=== PATIENT | female | born 1945 | race Caucasian/White ===

== ENCOUNTER 2021-07-24 06:45 | Day surgery (SDC) | payer MEDICARE, OTHER ==
[2021-07-24] MEDS ORDERED: Propofol 200 MG/20 ML SDV ONE (07:21)
[2021-07-24] MEDS ORDERED: fentaNYL 100 MCG/2 ML SDV ONE (07:21)
[2021-07-24] MEDS ORDERED: Ketorolac 30 MG/ML SDV ONE (07:22)
[2021-07-24] MEDS ORDERED: Midazolam 1 MG/ML 2 ML SDV ONE (07:22)
[2021-07-24] MEDS ORDERED: Glycopyrrolate 0.2 MG/ML SDV ONE (07:22)
[2021-07-24] MEDS ORDERED: Lidocaine 2% 5 ML SDV ONE (07:22)
[2021-07-24] MEDS ORDERED: Ondansetron 4 MG/2 ML SDV ONE (07:22)
--- NOTE | 2021-07-24 07:33 | PCM.PREANE ---
Preanesthetic Assessment - Procedure Proposed Procedure: Post Colporrhaphy, Perineaorraphy, correction of labial Agglutination - Anesthesia/Transfusion/Family Hx Anesthesia History: Prior Anesthesia Without Reaction Family History of Anesthesia Reaction: No Transfusion History: Prior Transfusion Reaction - Review of Systems General: No Symptoms Pulmonary: No Symptoms Cardiovascular: No Symptoms Gastrointestinal: No Symptoms Neurological: No Symptoms Other: Reports: None - Physical Assessment NPO Status Date: 07/23/21 NPO Status Time: 20:30 Height: 5 ft 3.75 in Weight: 63.503 kg ASA Class: 2 Mental Status: Alert & Oriented x3 Airway Class: Mallampati = 3 Dentition: Reports: Normal Dentition Thyro-Mental Finger Breadths: 3 Mouth Opening Finger Breadths: 3 ROM/Head Extension: Full Lungs: Clear to Auscultation, Normal Respiratory Effort Cardiovascular: Regular Rate, Regular Rhythm - Allergies Allergies/Adverse Reactions: Allergies Allergy/AdvReac Type Severity Reaction Status Date / Time No Known Allergies Allergy Verified 07/20/21 12:56 - Acknowledgements Anesthesia Type Planned: General Anesthesia Pt an Appropriate Candidate for the Planned Anesthesia: Yes Alternatives and Risks of Anesthesia Discussed w Pt/Guardian: Yes Pt/Guardian Understands and Agrees with Anesthesia Plan: Yes PreAnesthesia Questionnaire HEENT History: Reports: Allergic Rhinitis, Cataract Cardiovascular History: Reports: None Respiratory History: Reports: None Gastrointestinal History: Reports: Colon Polyp Genitourinary History: Reports: None LOST AND FOUND CLERK History: Reports: None Musculoskeletal History: Reports: Arthritis, Fracture Other Musculoskeletal History: hx of fx leg as a child Neurological History: Reports: None Psychiatric History: Reports: None Endocrine/Metabolic History: Reports: None Hematologic History: Reports: None Immunologic History: Reports: None Oncologic (Cancer) History: Reports: None Dermatologic History: Reports: Other (See Below) Other Dermatologic History: Lichen Sclerosis - Past Surgical History Head Surgeries/Procedures: Reports: None HEENT Surgical History: Reports: Naso-Sinus Surgery, Tonsillectomy Cardiovascular Surgical History: Reports: None Respiratory Surgical History: Reports: None GI Surgical History: Reports: Appendectomy, Colonoscopy, EGD, Hernia, Inguinal Female Surgical History: Reports: Tubal Ligation Endocrine Surgical History: Reports: None Neurological Surgical History: Reports: None Musculoskeletal Surgical History: Reports: None Oncologic Surgical History: Reports: None - SUBSTANCE USE Tobacco Use Within Last Twelve Months: No Recreational Drug Use History: No - HOME MEDS Home Medications: Home Meds Calcium Carbonate/Vitamin D3 [Calcium 500 + Vit D 400] 1 tab PO BID 07/20/21 [History] Cholecalciferol (Vitamin D3) [Vitamin D3] 5,000 unit PO DAILY 07/20/21 [History] Clobetasol [Clobetasol 0.05%] 1 applic TOP DAILY 07/20/21 [History] Melatonin 3 mg PO BEDTIME 07/20/21 [History] Multivitamin 1 tab PO DAILY 07/20/21 [History] estradioL [Estradiol] 1 dose VAG ASDIRECTED 07/20/21 [History] - CURRENT (IN HOUSE) MEDS Current Meds: Current Medications Discontinued Medications Fentanyl (Fentanyl 100 Mcg/2 Ml Sdv) Confirm Administered Dose 100 mcg .ROUTE .STK-MED ONE Stop: 07/24/21 07:22 Glycopyrrolate (Glycopyrrolate 0.2 Mg/Ml Sdv) Confirm Administered Dose 0.2 mg .ROUTE .STK-MED ONE Stop: 07/24/21 07:23 Ketorolac Tromethamine (Ketorolac 30 Mg/Ml Sdv) Confirm Administered Dose 30 mg .ROUTE .STK-MED ONE Stop: 07/24/21 07:23 Lidocaine (Lidocaine 2% 5 Ml Sdv) Confirm Administered Dose 5 ml .ROUTE .STK-MED ONE Stop: 07/24/21 07:23 Midazolam HCl (Midazolam 1 Mg/Ml 2 Ml Sdv) Confirm Administered Dose 2 mg .ROUTE .STK-MED ONE Stop: 07/24/21 07:23 Ondansetron HCl (Ondansetron 4 Mg/2 Ml Sdv) Confirm Administered Dose 4 mg .ROUTE .STK-MED ONE Stop: 07/24/21 07:23 Propofol (Propofol 200 Mg/20 Ml Sdv) Confirm Administered Dose 200 mg .ROUTE .STK-MED ONE Stop: 07/24/21 07:22
[2021-07-24] MEDS ORDERED: Bupivacaine 25%/EPINEPHrine/PF 0 ML ONE (07:38)
[2021-07-24] MEDS ORDERED: Bupivacaine 0.25% 10 ML SDV ONE (07:38)
[2021-07-24] MEDS ORDERED: Sodium Chloride 0.9% 20 ML ONE (08:06)
[2021-07-24] MEDS ORDERED: ceFAZolin 1 GM Vial ONE (08:06)
[2021-07-24] MEDS ORDERED: Lactated Ringers 1,000 ML IV SCH (08:15)
[2021-07-24] MEDS ORDERED: Lidocaine 2% Jelly 30 ML Tube ONE (08:43)
[2021-07-24] MEDS ORDERED: Morphine 2 MG/ML SYRINGE IVPUSH PRN (09:04)
[2021-07-24] MEDS ORDERED: Ondansetron 4 MG/2 ML SDV IVPUSH PRN (09:04)
[2021-07-24] MEDS ORDERED: fentaNYL 100 MCG/2 ML SDV IVPUSH PRN (09:04)
[2021-07-24] MEDS ORDERED: Naloxone 0.4 MG/ML SDV IVPUSH PRN (09:04)
[2021-07-24] MEDS ORDERED: Metoclopramide 10 MG/2 ML SDV IVPUSH PRN (09:04)
[2021-07-24] MEDS ORDERED: HYDROmorphone 1 MG/ML Syringe IVPUSH PRN (09:04)
[2021-07-24] MEDS ORDERED: Acetaminophen 1,000 MG in Premix Bag 1 BAG IV PRN (09:04)
[2021-07-24] MEDS ORDERED: Albuterol 0.083% 2.5 MG/3 ML Neb Soln NEB PRN (09:04)
--- NOTE | 2021-07-24 09:04 | PCM.POSTAN ---
POST ANESTHESIA ASSESSMENT - MENTAL STATUS Mental Status: Somnolent - VITAL SIGNS Vital Signs: Last Vital Signs Temp 97.2 F 07/24/21 06:45 Pulse 71 07/24/21 06:45 Resp 16 07/24/21 06:45 BP 129/61 07/24/21 06:45 Pulse Ox 98 07/24/21 06:45 - RESPIRATORY Respiratory Status: Respiratory Rate WNL, Airway Patent, O2 Saturation Stable, Supplemental Oxygen - CARDIOVASCULAR CV Status: Pulse Rate WNL, Blood Pressure Stable - GASTROINTESTINAL GI Status: No Symptoms - PAIN Free Text/Narrative:: Resting Comfortably - POST OP HYDRATION Hydration Status: Adequate & Stable
--- NOTE | 2021-07-24 09:09 | PCM.OPNOTE ---
- General Post-Op/Procedure Note Date of Surgery/Procedure: 07/24/21 Operative Procedure(s): posterior colporrhaphy, perineorrhaphy, lysis of labia agglutination Findings: Labia minor agglutinated, not defined preop, postop, well define, 3rd degree rectocele, repaired, tight band at introitus released by perineorrhaphy. Pre Op Diagnosis: symptomatic rectocele, lichen sclerosis Post-Op Diagnosis: Same Anesthesia Technique: General LMA Primary Surgeon: Rosaline Hearn Secondary Surgeon: Stephen Sullivan Anesthesia Provider: Shahid Calderon Peanut Farmer: Kevyn Castillo Pathology: vaginal mucosa Fluid Replacement, Intraop: 800 Output, Urine Amount: 10 (voided prior to going to OR) EBL in mLs: 10 Drain/Tube Comments:: vaginal packing and oquendo catheter left in place. Complications: None Known Condition: Good
--- NOTE | 2021-07-24 09:35 | PCM48HPAN ---
Post Anesthesia Note - EVALUATION WITHIN 48HRS OF ANESTHETIC Vital Signs in Normal Range: Yes Patient Participated in Evaluation: Yes Respiratory Function Stable: Yes Airway Patent: Yes Cardiovascular Function Stable: Yes Hydration Status Stable: Yes Pain Control Satisfactory: Yes Nausea and Vomiting Control Satisfactory: Yes Mental Status Recovered: Yes Vital Signs: Last Vital Signs Temp 97.2 F 07/24/21 08:56 Pulse 68 07/24/21 09:20 Resp 13 07/24/21 09:20 BP 121/61 07/24/21 09:20 Pulse Ox 99 07/24/21 09:20 - COMMENTS/OBSERVATIONS Free Text/Narrative:: Pt doing well post-op. VSS. No apparent anesthetic complications. Dr. Shahid Calderon
--- NOTE | 2021-07-24 09:53 | OR ---
SURGEON: Rosaline Hearn M.D. DATE OF PROCEDURE: 07/24/2021 PREOPERATIVE DIAGNOSES: Third-degree rectocele, lichen sclerosus with scarring. POSTOPERATIVE DIAGNOSES: Third-degree rectocele, lichen sclerosus with scarring. PROCEDURES: Posterior colporrhaphy, perineorrhaphy, and release of labial agglutination. PRIMARY SURGEON: Rosaline Hearn MD COD CLERK: Stephen Sullivan MD ANESTHESIA: General LMA. ESTIMATED BLOOD LOSS: Less than 10 mL. FINDINGS: Third-degree rectocele; tight adhesion at the posterior introitus, released with perineorrhaphy; and labial agglutination, released with blunt dissection. COMPLICATIONS: None known. DISPOSITION: Stable to Recovery. Vaginal packing and Novak catheter in place at the end of procedure. BRIEF HISTORY: This is a 76-year-old female. She has a long history of severe lichen sclerosis. She has faithfully used both Premarin cream and clobetasol for treatment of lichen sclerosis. She has a worsening third-degree rectocele with difficulty passing bowel movements. She cannot retain or accept a pessary due to the stricture at the posterior introitus, and she desires to proceed with posterior colporrhaphy, perineorrhaphy to release the stricture, as well as release of labial agglutination with risks discussed including bleeding; infection; injury to bowel, bladder, blood vessels, ureters, or other organs; risk of thromboembolic event; and risk of anesthesia. Understanding all these risks, she does desire to proceed. DESCRIPTION OF PROCEDURE: With the patient in dorsal lithotomy position, under adequate LMA analgesia, the perineum and vagina were prepped with Betadine and draped in the usual fashion for vaginal surgery. SCDs were in place. Novak catheter had been placed. An appropriate time-out was held. The patient was placed in Trendelenburg position and a [place] retractor was placed anteriorly. The lower aspect of the rectocele was grasped with an Allis clamp and hydrodissection was performed up to the level of the upper vagina and limit of the rectocele. The vaginal mucosa was incised in the midline. The muscularis layer was carefully dissected from the vaginal mucosa and reapproximated in midline using multiple interrupted sutures of 3-0 Vicryl. The vaginal mucosa was then very slightly trimmed and reapproximated using a running lock suture of 3-0 Vicryl. The perineum was then incised in a ollie-shaped incision and the skin was removed. The skin included the severe lichen sclerosis and stricture. The ollie-shaped incision was then closed anterior to posterior to slightly extend the opening, which was previously very stenotic, and the closure was accomplished in a multilayer fashion with 3-0 Caprosyn. This being completed, attention was then turned anteriorly to the prepuce and labia minora. With blunt dissection, the labia minora structure was from the surrounding skin developing a good discrete labia minora on both sides and the prepuce structures were also released bluntly. The vagina was then packed with packing tape, instilled with K-Y Jelly, and the entire perineum was treated with 1% lidocaine jelly. The Novak catheter was left in place and final sponge, needle, and instrument counts were reported as correct. There were no known complications. The patient was transferred to Recovery in good condition. HILARIA SHELLEY /[id number]
== END 2021-07-24 15:45 | disposition home or self-care (01) ==
LOC: MW.SDS 06:45
PROVIDERS: ATTEND Obstetrics & Gynecology
DX: N81.6 Rectocele (principal); L90.0 Lichen sclerosus et atrophicus; N76.0 Acute vaginitis; Z79.899 Other long term (current) drug therapy; Z86.16 Personal history of COVID-19; Z90.49 Acquired absence of other specified parts of digestive tract; Z98.890 Other specified postprocedural states; Z87.891 Personal history of nicotine dependence
CPT/HCPCS: 56441; 57250; J0690; J1885; J2250; J2370; J2704; J3490; J7120; 00942; 99100; J2405; J3010